=== PATIENT | male | born 1945 | race Asian ===

== ENCOUNTER 2024-08-11 06:34 | Day surgery (SDC) | payer OTHER ==
[~2024-08-11] VITALS: Ht 152.4 cm; Wt 54.5 kg
[2024-08-11] MEDS ORDERED: ALBUTEROL SULFATE 2.5 MG/0.5 ML NEB SOLUTION NEB ONE (06:35)
[2024-08-11] MEDS ORDERED: LIDOCAINE 4% 50 ML SOLUTION TP ONE (06:35)
[2024-08-11] MEDS ORDERED: BENZOCAINE 20% 50 MCG/SPRAY 57 GM TP ONE (06:35)
[2024-08-11] MEDS ORDERED: LIDOCAINE 2% 11 ML JELLY TP ONE (06:35)
[2024-08-11] MEDS ORDERED: SODIUM CHLORIDE 0.9% 1,000 ML ONE (07:06)
[2024-08-11] MEDS: SODIUM CHLORIDE 0.9% 1,000 ML IV ONE (07:38)
[2024-08-11] MEDS ORDERED: MIDAZOLAM HCL 2 MG/2 ML VIAL ONE (07:59)
[2024-08-11] MEDS ORDERED: FentaNYL CITRATE PF 100 MCG/2 ML VIAL ONE (07:59)
[2024-08-11] MEDS ORDERED: QUET25TA PO (08:04)
[2024-08-11] MEDS ORDERED: BACL10TA PO (08:04)
[2024-08-11] MEDS ORDERED: LOPE-232 PO (08:04)
[2024-08-11] MEDS ORDERED: FAMO20 PO (08:04)
[2024-08-11] MEDS ORDERED: TRAZ-252 PO (08:04)
[2024-08-11] MEDS ORDERED: METO25XL PO (08:04)
[2024-08-11] MEDS ORDERED: ATOR20TA PO (08:04)
[2024-08-11] MEDS ORDERED: AZEL23SP2 NASAL (08:04)
[2024-08-11] MEDS ORDERED: OMEP10CA38 PO (08:04)
[2024-08-11] MEDS ORDERED: FLUT1BLS15 IH (08:04)
[2024-08-11] MEDS ORDERED: ALBU18HF12 IH (08:04)
[2024-08-11] MEDS ORDERED: TAMS0.4C94 PO (08:04)
[2024-08-11] MEDS ORDERED: MIRT-89 PO (08:04)
[2024-08-11] MEDS ORDERED: MONT-35 PO (08:04)
[2024-08-11] MEDS ORDERED: MAG355OR38 PO (08:04)
[2024-08-11] MEDS ORDERED: PROM118S5 PO (08:04)
[2024-08-11] MEDS ORDERED: LOSA-381 PO (08:04)
[2024-08-11 09:32] VITALS: PULSE 77; RESP 13; O2SAT 99
[2024-08-11] MEDS: MethylPREDNISolone SOD SUCC 125 MG/2 ML VIAL IVP ONE (10:31)
== END 2024-08-11 14:25 | disposition home or self-care (01) ==
LOC: SURGERY 06:34
PROVIDERS: ATTEND Internal Medicine Critical Care Medicine
DX: R05.3 Chronic cough (principal); R06.2 Wheezing; R49.0 Dysphonia; R04.2 Hemoptysis; R06.1 Stridor; R91.8 Other nonspecific abnormal finding of lung field; B37.0 Candidal stomatitis; Z87.891 Personal history of nicotine dependence; Z98.49 Cataract extraction status, unspecified eye
CPT/HCPCS: 31623; 87206; 87101; 87220; 87070; 88108; 31624; 94640; 71045; 87015; J3010; J2250; J7030; J7613; Z7610